=== PATIENT | female | born 1990 | race Caucasian/White ===

== ENCOUNTER → 2022-03-15 | Outpatient (CLI) | payer BC ==
[~2022-03-15] MED LIST: PRIL20TA2 PO; ZINC50TA4
== END ==
LOC: M LABSMTC 10:17
PROVIDERS: ATTEND Anesthesiology
DX: Z01.818 Encounter for other preprocedural examination (principal); Z11.52 Encounter for screening for COVID-19

== ENCOUNTER 2022-03-20 11:12 | Day surgery (SDC) | payer BC ==
[~2022-03-20] VITALS: Ht 160 cm; Wt 88.9 kg
[~2022-03-20 11:12] MED LIST changes: +NS 1,000 ML IV ONE
[2022-03-20] MEDS ORDERED: LIDOCAINE 2% MDV 20ML VIAL As Ordered ONE (12:58)
[2022-03-20] MEDS ORDERED: propofoL 200 MG/20 ML VIAL As Ordered ONE (12:58)
[2022-03-20] MEDS ORDERED: GLYCOPYRROLATE INJ 0.2 MG/ML 2 ML VIAL As Ordered ONE (12:58)
[2022-03-20 13:25] VITALS: BP 120/54
== END 2022-03-20 12:40 | disposition home or self-care (01) ==
LOC: M OPP 11:12
PROVIDERS: ATTEND Internal Medicine Gastroenterology
DX: K63.5 Polyp of colon (principal); K57.30 Diverticulosis of large intestine without perforation or abscess without bleeding; K64.8 Other hemorrhoids; K52.9 Noninfective gastroenteritis and colitis, unspecified; K22.89 Other specified disease of esophagus; K29.70 Gastritis, unspecified, without bleeding; T18.2XXA Foreign body in stomach, initial encounter; K63.89 Other specified diseases of intestine; Z79.899 Other long term (current) drug therapy; Z98.890 Other specified postprocedural states

== ENCOUNTER → 2023-05-06 | Outpatient (REF) | payer BC ==
[~2023-05-06] MED LIST changes: -NS 1,000 ML IV ONE
== END ==
LOC: M SFHCDERM 18:28
PROVIDERS: ATTEND Nurse Practitioner Family
DX: L82.0 Inflamed seborrheic keratosis (principal)

== ENCOUNTER → 2025-03-19 | Outpatient (REF) | payer BC | LOC: M SFHCRHEU 10:26 | PROVIDERS: ATTEND Internal Medicine | DX: R76.8 Other specified abnormal immunological findings in serum (principal); M25.50 Pain in unspecified joint ==

== ENCOUNTER → 2025-03-26 | Outpatient (CLI) | payer BC ==
[~2025-03-26] MED LIST changes: +PROHANCE 279.3MG/ML 15ML VIAL ONE
== END ==
LOC: M PLAIMG 09:57
PROVIDERS: ATTEND Physician Assistant
DX: M67.442 Ganglion, left hand (principal); M25.442 Effusion, left hand
CPT/HCPCS: 73220; A9576

== ENCOUNTER → 2025-04-23 | Outpatient (CLI) | payer BC ==
[~2025-04-23] MED LIST changes: -PROHANCE 279.3MG/ML 15ML VIAL ONE; +ZINC50TA37; -ZINC50TA4
== END ==
LOC: M PLAIMG 11:42
PROVIDERS: ATTEND Internal Medicine
DX: M25.551 Pain in right hip (principal); M25.552 Pain in left hip